=== PATIENT | female | born 1925 | race Caucasian/White ===

== ENCOUNTER 2016-12-26 16:04 | Emergency (ER) | payer MEDICARE ==
[2016-12-26] MEDS ORDERED: Triple Antibiotic Oint 1 GM Packet ONE (16:28)
[2016-12-26] MEDS ORDERED: Cephalexin 250 MG CAP ONE (16:28)
== END 2016-12-26 16:47 | disposition home or self-care (01) ==
LOC: BURERS 16:04
DX: L03.116 Cellulitis of left lower limb (principal); I25.10 Atherosclerotic heart disease of native coronary artery without angina pectoris; I10 Essential (primary) hypertension; M81.0 Age-related osteoporosis without current pathological fracture; F32.9 Major depressive disorder, single episode, unspecified; Z79.82 Long term (current) use of aspirin; Z79.891 Long term (current) use of opiate analgesic; Z79.899 Other long term (current) drug therapy
CPT/HCPCS: 99283

== ENCOUNTER 2016-12-30 13:56 | Emergency (ER) | payer MEDICARE ==
[2016-12-30] MEDS ORDERED: Adacel (T-DAP) 0.5 ML VIAL ONE (15:15)
== END 2016-12-30 15:34 | disposition home or self-care (01) ==
LOC: BURERS 13:56
DX: L82.1 Other seborrheic keratosis (principal); I25.10 Atherosclerotic heart disease of native coronary artery without angina pectoris; I10 Essential (primary) hypertension; M81.0 Age-related osteoporosis without current pathological fracture; F32.9 Major depressive disorder, single episode, unspecified; Z79.82 Long term (current) use of aspirin; Z79.899 Other long term (current) drug therapy
CPT/HCPCS: 90471; 90715